=== PATIENT | male | born 1955 ===

== ENCOUNTER 2025-01-01 11:20 | Outpatient (AMB) | payer MEDICARE, MEDICAID, SELFPAY ==
--- NOTE | 2025-01-01 11:21 | MHC.OFFVIS ---
Intake Visit Reasons: 6m Accompanied by: staff member Allergies No Known Allergies Allergy (Verified 01/01/25 11:23) Medication List - Last Reconciled 01/01/25 by Hermelinda James CNP albuterol sulfate 90 mcg/actuation inhalation amantadine HCl 100 mg PO BID apixaban (Eliquis) 5 mg PO BID bisacodyl 10 mg [place] DAILY cholecalciferol (vitamin D3) 50 mcg PO DAILY divalproex 500 mg PO TID docusate sodium 100 mg PO DAILY ferrous sulfate (FeroSul) mg PO fluoxetine 20 mg PO DAILY fluticasone furoate-vilanterol 100-25 mcg/dose inhalation folic acid 1 mg PO DAILY levothyroxine 50 mcg PO DAILY loratadine 10 mg PO DAILY metoprolol tartrate 50 mg PO DAILY omeprazole 20 mg PO BID quetiapine mg PO simvastatin 40 mg PO BEDTIME tamsulosin mg PO HPI Comments Details: 69-year-old man with 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 He was doing okay. Amantadine was helping with tremor. No functional impairment. No difficulty eating, drinking, or swallowing. Tremor could be worse with caffiene or sugar.?Balance was okay and he was going for some walks. No falls. Sleep was okay. [facility] Medical History (Updated 01/01/25 @ 11:29 by Hermelinda James CNP) URBANO (obstructive sleep apnea) Depression BPH (benign prostatic hyperplasia) Hypothyroidism GERD (gastroesophageal reflux disease) Schizophrenia Intellectual disability Seizure disorder Review of Systems Const Denies chills, Denies daytime sleepiness, Denies difficulty sleeping, Denies fatigue, Denies fever(s), Denies frequent falls, Denies headache(s), Denies increased appetite, Denies poor appetite, Denies snoring, Denies weakness, Denies weight gain and Denies weight loss Eyes Denies loss of vision ENT Denies vertigo, Denies dizziness and Denies headache(s) Card Denies chest pain at rest, Denies chest pain with activity, Denies syncope, Denies leg edema and Denies palpitations Resp Denies snoring GI Denies constipation, Denies heartburn, Denies diarrhea and Denies nausea Denies urinary frequency, Denies urinary incontinence and Denies urinary urgency Musc Denies abnormal gait, Denies numbness and Denies tingling Skin/Breast Denies dry skin and Denies rash Neuro Denies abnormal gait, Denies vertigo, Denies dizziness, Denies syncope, Denies frequent falls, Denies headache(s), Denies lack of coordination, Denies loss of vision, Denies memory loss, Denies numbness, Denies restless legs, Denies seizure-like activity, Denies tingling, Denies paresthesias, Reports tremor(s) and Denies weakness Psych Denies anxiety, Denies depression, Denies auditory hallucinations, Denies memory loss, Denies visual hallucinations and Denies suicidal ideation Endo Denies fatigue and Denies palpitations Physical Exam Const Other: General Appearance:? normal, in no acute distress. Skin:? no rashes, no significant birthmarks. Heart:? S1, S2 normal, no murmurs. Lungs:? clear anteriorly and posteriorly. Extremities:? no edema. Psych:? alert, cooperative with exam. Neuro Other: Mental Status:?Normal attention, orientation, and flat affect.? Cranial Nerves:?Pupils are equal, round and reactive to light. External occular muscles are intact. Visual banegas are full. Face is symmetrical. Facial sensations are normal. Tongue is midline. Palate elevates symmetrically. Shoulder shrugging is normal. Hearing to bedside conversation is normal. Sensory Exam:?....? Coordination:?No ataxia,?no titubation.? Gait Exam: Within normal limits. Cerebellar Signs:?[id number] with tremor. Extrapyramidal System:?Bilateral hand cogwheeling. Pronator Drift:?Not present.? Involuntary Movements:?Bilateral hand mixed tremor. Speech:?Normal.? Results Reviewed Results Reviewed: NICS at [facility] in Apr 2022: OK TTE at [facility] in Apr 2022: OK. Assessment & Plan Assessment & Plan (1) Tremor: Code(s): R25.1 - Tremor, unspecified Category: Medical Plan: Continue amantadine 100mg 1 capsule twice a day. (2) Chronic static encephalopathy: Code(s): G93.49 - Other encephalopathy Category: Medical Plan Meds tried: benztropine (worked but not covered by insurance), amantadine Coding Level of Care Code Est Pt Level 4 (62858) Diagnoses Tremor R25.1 Chronic static encephalopathy G93.49
--- OUTSIDE RECORDS SUMMARY | 2025-01-01 14:24 | XMS_ITS | Encounter Summary ---
Author Organization [facility] [address] Address [address] [place] [address] Care Team Providers Care Insurance Advisor Name Role Phone Diann Redmond MD Primary Care Provider [phone] Encounter Details Date Type Department Care Team (Late st Contact Info) Description 12/11/2024 Results Follow-Up Internal Medicine - [place] [address] [facility] [address] [place] [phone] Diann Redmond MD [address] [place] [phone] Social History Tobacco Use Types Packs/Day Years Used Date Smoking Tobacco: Former Cigarettes Q uit: 03/01/2016 Smokeless Tobacco: Never Alcohol Use Standard Drinks/Week Comments Not Currently 0 (1 standard drink = 0.6 oz pur e alcohol) Sex and Gender Information Value Date Recorded Sex Assigned at Male 06/21/2024 9:25 AM EDT Legal Sex Male 6:18 PM EST Gender Identity Male 06/21/2024 9:25 AM EDT Sexual Orientation Straight 06/21/2024 9: 25 AM EDT documented as of this encounter Plan of Treatment Upcoming Encounters Date Type Department Care Team (Late st Contact Info) Description 05/14/2025 11:30 AM EDT Office Visit Internal Medicine - [place] [address] [facility] [address] [place] [phone] Diann Redmond MD [address] [place] [phone] 05/30/2025 9:30 AM EDT Office Visit Pulmonology - [place] [address] [phone] Sabina Cazares MD [address] [place] [phone] 05/31/2025 10:15 AM EDT Appointment Ultrasound [address] [place] [phone] 06/06/2025 11:30 AM EDT Office Visit Vascular Surgery - [place] [address] [place] [phone] Asha Suarez MD [address] [place] [phone] documented as of this encounter Visit Diagnoses Not on filedocumented in this encounter Care Teams Insurance Advisor Relationship Specialty Start Date End Date Diann Redmond MD [address] [phone] PCP - General 01/08/23 documented as of this encounter
--- OUTSIDE RECORDS SUMMARY | 2025-01-01 14:24 | XMS_ITS | Clinical Summary ---
Author Organization [address] [place] [address] [place] [phone] Phone Care Team Providers Care Research Coordinator Name Role Phone Diann Redmond MD Primary Care Provider [phone] Allergies Active Allergy Reactions Criticality Noted Date Comments Fluphenazine Hcl 01/02/2020 Medications loratadine 10 mg capsule Take by mouth. Acti ve benztropine (COGENTIN) 0.5 mg tablet Take 1 tablet (0.5 mg total) by mouth 1 (one) time each day. Active sennosides 8.6 mg capsule Take 8.6 mg by mouth as needed (constipation) . 024 Active psyllium (METAMUCIL) 0.52 gram capsule Take 1 capsule (0.52 g total) by mouth 1 (one) time each day. 022 Active calcium carbonate 1,500 mg (600 mg elemental calcium) tablet Take 2 tablets (3,000 mg total) by mouth 1 (one) time each day. 023 Active divalproex (DEPAKOTE) [address] tablet 023 Active multivitamin tablet Take 1 tablet by mouth 1 (one) time each day with breakfast. 023 Active simethicone (MYLICON,GAS-X ) 180 mg capsule Take 1 capsule (180 mg total) by mouth 1 (one) time each day. Active folic acid (FOLVITE) 1 mg tablet 1 (one) time each day. 021 Active metoprolol tartrate (LOPRESSOR) 50 mg tablet at bedtime. 020 Active FLUoxetine (PROzac) 20 mg capsule Take 1 capsule (20 mg total) by mouth 1 (one) time each day. 019 Active divalproex (DEPAKOTE ER) 500 mg 24 hr tablet 1 tablet (500 mg total). 013 Active albuterol HFA (PROAIR HFA ; PROVENTIL HFA ; VENTOLIN HFA) 90 mcg/actuation inhaler INHALE 2 PUFFS EVERY 6 HOURS PRN 016 Active amantadine (SYMMETREL) 100 mg capsule Take 1 capsule (100 mg total) by mouth 2 (two) times a day. Active QUEtiapine (SEROquel) 50 mg tablet Take 1 tablet (50 mg total) by mouth. Active acetaminophen (TYLENOL) 325 mg tabletIndicati ons:Intractabl e headache, unspecified chronicity pattern, unspecified headache type Take 2 tablets (650 mg total) by mouth every 4 (four) hours if needed for moderate pain, fever - temperature GREATER than 38 C (100.4 F) or headaches. 180 tablet 3 025 Active bisacodyL (DULCOLAX) 10 mg suppository Insert 1 suppository (10 mg total) into the rectum 1 (one) time each day if needed for constipation. 30 suppository 025 Active omeprazole (PriLOSEC) [address] capsule Take 1 capsule (20 mg total) by mouth 1 (one) time each day. Do not crush or chew. 30 each 025 2025 Active fluticasone furoate-vilant Daniella (BREO ELLIPTA) 100-25 mcg/dose inhaler Inhale 1 puff by mouth 1 (one) time each day. 1 each 11 Active albuterol HFA (Ventolin HFA) 90 mcg/actuation inhaler Inhale 2 puffs by mouth every 6 (six) hours if needed for wheezing. 18 g 11 2025 Active Eliquis 5 mg tablet TAKE 1 TABLET BY MOUTH TWICE DAILY 60 tablet 1 Active FeroSuL 325 mg (65 mg iron) tablet TAKE 1 TABLET BY MOUTH ONCE DAILY 30 tablet 1 Active loratadine (CLARITIN) 10 mg tablet Take 1 tablet (10 mg total) by mouth 1 (one) time each day. 30 tablet 1 Active cholecalcifero l (VITAMIN D-3) 50 mcg (2,000 unit) capsule TAKE 1 CAPSULE BY MOUTH DAILY. 30 capsule 1 Active levothyroxine (SYNTHROID, LEVOTHROID) 50 mcg tablet TAKE 1 TABLET BY MOUTH ONCE DAILY 30 tablet 1 Active tamsulosin (FLOMAX) 0.4 mg 24 hr capsule TAKE 1 CAPSULE BY MOUTH AT BEDTIME. 30 capsule 1 Active docusate sodium (COLACE) 100 mg capsule TAKE (1) CAPSULE BY MOUTH DAILY 30 capsule 1 Active simvastatin (ZOCOR) 40 mg tablet Take 1 tablet (40 mg total) by mouth at bedtime. at bedtime 90 tablet 3 Active omeprazole-sod ium bicarbonate (Zegerid) 40-1.1 mg-gram per capsule Take 1 capsule by mouth 1 (one) time each day before breakfast. Do not crush, chew, or split. 90 capsule 025 2025 Active omeprazole (PriLOSEC) [address] capsule Take 1 capsule (20 mg total) by mouth 2 (two) times a day. Do not crush or chew. 60 capsule 3 025 2024 Discontinued Eliquis 5 mg tablet TAKE 1 TABLET BY MOUTH TWICE DAILY 60 tablet 025 2024 Discontinued simvastatin (ZOCOR) 40 mg tablet TAKE 1 TABLET BY MOUTH DAILY AT BEDTIME 30 tablet 025 2024 Discontinued FeroSuL 325 mg (65 mg iron) tablet TAKE 1 TABLET BY MOUTH ONCE DAILY 30 tablet 025 2024 Discontinued loratadine (CLARITIN) 10 mg tablet TAKE (1) TABLET BY MOUTH DAILY. 30 tablet 2024 Discontinued cholecalcifero l (VITAMIN D-3) 50 mcg (2,000 unit) capsule TAKE 1 CAPSULE BY MOUTH DAILY. 30 capsule 025 2024 Discontinued levothyroxine (SYNTHROID, LEVOTHROID) 50 mcg tablet TAKE 1 TABLET BY MOUTH ONCE DAILY 30 tablet 2024 Discontinued tamsulosin (FLOMAX) 0.4 mg 24 hr capsule TAKE 1 CAPSULE BY MOUTH AT BEDTIME. 30 capsule 2024 Discontinued docusate sodium (COLACE) 100 mg capsule TAKE (1) CAPSULE BY MOUTH DAILY 30 capsule 2024 Discontinued guaiFENesin (ROBITUSSIN) 100 mg/5 mL liquid Take 10 mL (200 mg total) by mouth 3 (three) times a day if needed for cough for up to 10 days. 120 mL 2024 simvastatin (ZOCOR) 40 mg tablet TAKE 1 TABLET BY MOUTH DAILY AT BEDTIME 30 tablet 1 2024 Discontinued(R eorder) omeprazole (PriLOSEC) [address] capsule Take 1 capsule (20 mg total) by mouth 1 (one) time each day. 60 capsule 2024 Discontinued(I neffective) Active Problems Problem Noted Date Diagnosed Date Osteoarthritis 06/28/2024 Epilepsy ([facility] V24, [facility] V28) 06/28/2024 Bipolar disorder ([facility] V24[facility] V28) 06/01 Asthma 06/28/2024 URBANO (obstructive sleep apnea) 01/27/2021 Overview (01/19/2024): [facility] diagnostic polysomnogram; 01/11/2021; weight 270 pounds; BMI 32; AHI 110; no REM sleep; 88 central apneas; 93 obstructive apneas; 79 mixed apneas; 88 hypopneas; average oxygen saturation 93% with 87% oxygen torsten. Study does not reflect nocturnal hypoxemia. Sees Dr Cazares. Memory change 01/27/2021 Esophageal reflux 07/12/2017 Hyperlipidemia 07/12/2017 Vitamin D deficiency 07/12/2017 Benign essential tremor 08/15/2016 Pulmonary nodule 07/13/2016 COPD (chronic obstructive pu lmonary disease) ([facility] V24, [facility] V28) 07/06/2016 Hypocalcemia 04/13/2016 Hypothyroidism 04/13/2016 Internal hemorrhoids 04/13/2016 Binge eating 02/17/2016 Prostatic hyperplasia 2016 Depression 01/08/2016 Chronic cholecystitis 10/16/2015 Anxiety 03/14/2015 Carpal tunnel syndrome 10/04/2013 Allergic rhinitis 08/19/2012 Eczema 05/10/2012 Encounters Date Type Department Care Team Description 12/13/20[address] [phone] Sabina Cazares MD 12/11/2024 3:00 PM EDT Office Visit Internal Medicine [address] [phone] Diann Redmond MD Numbness in feet (Primary Dx); Screening for malignant neoplasm of prostate; Hypothyroidism due to acquired atrophy of thyroid; Elevated PSA 12/11/2024 Results Follow-Up Internal Medicine [address] [phone] Diann Redmond MD 12/11/2024 Telephone Internal Medicine [address] [phone] Diann Redmond MD 11/29/2024 10:15 AM EDT Office Visit Pulmonology [address] [phone] Sabina Cazares MD Emphysema of lung ([facility] V24, [facility] V28) (Primary Dx); URBANO (obstructive sleep apnea); Gastroesophageal reflux disease without esophagitis; Obesity (BMI 30-39.9) 11/02/2024 Telephone Internal Medicine - [place] [address] [facility] [address] [place] [address] Diann Redmond MD 10/25/2024 Telephone Pulmonology - [place] [facility] [address] [place] [address] Sabina Cazares MD 10/17/2024 Telephone Pulmonology - [place] [address] [facility] [address] [place] [address] Sabina Cazares MD from Last 3 Months Immunizations Immunization Administration Dates Next Due Influenza trivalent, 0.5mL, preservative free (Fluarix; FluLaval; Fluzone) ages 6mo and older (Afluria) 3 years and older 2016 Moderna SARS-CoV-2 COVID-19, mRNA, LNP-S, preservative free 08/04/2021,02/19/2021,04/19/2020,2020 Pneumococcal conjugate 13 va lent (Prevnar 13, PCV13) 2mo and older 08/22/2021 Zoster recombinant (Shingrix ) 19yo and older 07/30/2021 Surgical History Surgery Date Site/Laterality Comments CATARACT EXTRACTION PROCEDURE: HISTORICAL CATARACT REMOVAL Medical History Medical History Date Comments Allergic rhinitis 08/19/2012 DX:Allergic rh initis Anxiety 03/14/2015 DX:Anxiety Benign essential tremor 08/15/2016 DX:Benig n essential tremor Binge eating 02/17/2016 DX:Binge eating Carpal tunnel syndrome 10/04/2013 DX:Carpal tunnel syndrome Chronic cholecystitis 10/16/2015 DX:Chronic cholecystitis COPD (chronic obstructive pu lmonary disease) ([facility] V24, [facility] V28) 07/06/2016 DX:COPD (chronic o bstructive pulmonary disease) ([facility]) Depression 01/08/2016 DX:Depression Eczema 05/10/2012 DX:Eczema Esophageal reflux 07/12/2017 DX:Esophageal reflux History of duodenal ulcer 03/14/2015 DX:His tory of duodenal ulcer Hyperlipidemia 07/12/2017 DX:Hyperlipidemi a Hypocalcemia 04/13/2016 DX:Hypocalcemia Internal hemorrhoids 04/13/2016 DX:Internal hemorrhoids Prostatic hyperplasia 2016 DX:Prostat ic hyperplasia Pulmonary nodule 07/13/2016 DX:Pulmonary no dule Vitamin D deficiency 07/12/2017 DX:Vitamin D deficiency Family History Relation Name Status Comments Father Mother Social History Tobacco Use Types Packs/Day Years Used Date Smoking Tobacco: Former Cigarettes Q uit: 03/01/2016 Smokeless Tobacco: Never Tobacco Cessation:Counseling Given: Not Answered Alcohol Use Standard Drinks/Week Comments Not Currently 0 (1 standard drink = 0.6 oz pur e alcohol) Sex and Gender Information Value Date Recorded Sex Assigned at Male 06/21/2024 9:25 AM EDT Legal Sex Male 6:18 PM EST Gender Identity Male 06/21/2024 9:25 AM EDT Sexual Orientation Straight 06/21/2024 9: 25 AM EDT Obstetrics History Last Filed Vital Signs Vital Sign Reading Time Taken Comments Blood Pressure 134/82 12/11/2024 3:00 PM EDT Pulse 91 12/11/2024 3:00 PM EDT Temperature 36.7 C (98.1 F) 12/11/2024 3:00 PM EDT Respiratory Rate 20 12/11/2024 3:00 PM EDT Oxygen Saturation 97% 12/11/2024 3:00 PM EDT Inhaled Oxygen Concentration - - Weight 126 kg (278 lb) 12/11/2024 3:00 PM EDT Height 194.3 cm (6' 4.5 ) 12/11/2024 3:00 PM EDT Body Mass Index 33.4 12/11/2024 3:00 PM EDT Plan of Treatment Upcoming Encounters Date Type Department Care Team (Late st Contact Info) Description 05/14/2025 11:30 AM EDT Office Visit Internal Medicine - [address] [phone] Diann Redmond MD [address] [place] [phone] 05/30/2025 9:30 AM EDT Office Visit Pulmonology - [address] [phone] Sabina Cazares MD [address] [place] [phone] 05/31/2025 10:15 AM EDT Appointment [facility] Ultrasound [address] [place] [address] 06/06/2025 11:30 AM EDT Office Visit Vascular Surgery - [place] [address] [place] [phone] Asha Suarez MD [address] [place] [phone] Health Maintenance Due Date Last Done Comments DTaP,Tdap,and Td Vaccines (1 - Tdap) 1973 RSV Immunization Adult Patients (1 - Risk 50-74 years 1-dose series) 01/16/2004 Zoster Vaccines (2 of 2) 09/24/2021 07/30/2021 Pneumococcal Vaccine: 50+ Years (2 of 2 - PPSV23, PCV20, or PCV21) 10/17/2021 08/22/2021 Abdominal Aortic Aneurysm (AAA) Screen 02/07/2022 Hepatitis C Screening 02/07/2022 Social Influencers of Health Screening 02/07/2022 Depression Screening 03/01/2024 08/25/2023 Falls Risk Assessment 08/24/2024 08/25/2023 Medicare Annual Wellness Visit 08/24/2024 08/25/2023 COVID-19 Vaccine ( season) 2024 08/04/2021, 02/19/2021, 04/19/2020, Additional history exists Influenza Vaccine (#1) 2024 , 2016, 12/22/2014 Colorectal Cancer Screening: Colonoscopy 02/10/2026 02/11/2016 Cholesterol Screening (Lipid Panel) 04/04/2029 04/04/2024, 04/08/2023 HIB Vaccines Aged Out No longer eligi ble based on patient's age to complete this topic HPV Vaccines Aged Out No longer eligi ble based on patient's age to complete this topic Hepatitis A Vaccines Aged Out No long er eligible based on patient's age to complete this topic Hepatitis B Vaccines Aged Out No long er eligible based on patient's age to complete this topic IPV Vaccines Aged Out No longer eligi ble based on patient's age to complete this topic MMR Vaccines Aged Out No longer eligi ble based on patient's age to complete this topic Meningococcal ACWY Vaccine Aged Out N o longer eligible based on patient's age to complete this topic Meningococcal B Vaccine Aged Out No l onger eligible based on patient's age to complete this topic RSV Immunization Patients Under 20 months Aged Out No longer eligible based on patient's age to complete this topic Varicella Vaccines Aged Out No longer eligible based on patient's age to complete this topic Procedures Procedure Name Priority Date/Time Associated Diagnosis Comments TRIIODOTHYRONINE FREE Routine 12/11/2024 3:30 PM EDT Numbness in feet Screening for malignant neoplasm of prostate Hypothyroidism due to acquired atrophy of thyroid Elevated PSA FREE THYROXINE WITH REFLEX TO FREE TRIIODOTHYRONINE Routine 12/11/2024 3:30 PM EDT Numbness in feet Screening for malignant neoplasm of prostate Hypothyroidism due to acquired atrophy of thyroid Elevated PSA THYROID STIMULATING HORMONE WITH REFLEX TO FREE T4 AND FREE T3 Routine 12/11/2024 3:30 PM EDT Numbness in feet Screening for malignant neoplasm of prostate Hypothyroidism due to acquired atrophy of thyroid Elevated PSA COMPREHENSIVE METABOLIC PANEL Routine 12/11/2024 3:30 PM EDT Numbness in feet Screening for malignant neoplasm of prostate Hypothyroidism due to acquired atrophy of thyroid Elevated PSA LIPID PANEL WITH REFLEX TO DIRECT LDL Routine 04/04/2024 9:56 AM EST Hypothyroidism due to acquired atrophy of thyroid Mixed hyperlipidemia Chronic obstructive pulmonary disease, unspecified COPD type (CMS/HCC V24, CMS/HCC V28) DEPRESSION SCREENING Routine 08/25/2023 FALLS RISK ASSESSMENT Routine 08/25/2023 COLONOSCOPY Routine 02/11/2016 from Last 3 Months or Most Recently Relevant to Health Maintenance Results * (ABNORMAL) Thyroid stimulating hormone with reflex to free t4 and free t3 (12/11/2024 3:30 PM EDT) TSH 6.31(H) 0.40 - 4.00 mcIU/mL LAB CHEMISTRY METHOD 12/11/2024 7:13 PM EDT [facility] Blood Venous blood specimen / Unknown Venipuncture / Unknown 12/11/2024 3:30 PM EDT 12/11/2024 3:31 PM EDT Diann Redmond MD LAB BLOOD ORDERABLES Final Res ult Performing Organization Address City/[facility]/ZIP Co de Phone Number [facility] [address] [place] [address], [place] [phone] * Free thyroxine with reflex to free triiodothyronine (12/11/2024 3:30 PM EDT) Free T4 1.13 0.70 - 1.80 ng/dL LAB CHEMISTRY METHOD 12/11/2024 7:49 PM EDT [facility] Blood Venous blood specimen / Unknown Venipuncture / Unknown 12/11/2024 3:30 PM EDT 12/11/2024 3:31 PM EDT us Diann Redmond MD LAB BLOOD ORDERABLES Final Res ult Performing Organization Address City/[facility]/ZIP Co de Phone Number [facility] [address] [place] [address], [place] [phone] * Triiodothyronine free (12/11/2024 3:30 PM EDT) T3, Free 316 230 - 420 pcg/dL LAB CHEMISTRY METHOD 12/11/2024 8:21 PM EDT [facility] Blood Venous blood specimen / Unknown Venipuncture / Unknown 12/11/2024 3:30 PM EDT 12/11/2024 3:31 PM EDT us Diann Redmond MD LAB BLOOD ORDERABLES Final Res ult [facility] [address] [place] [address], [place] [phone] * (ABNORMAL) Comprehensive metabolic panel (12/11/2024 3:30 PM EDT) Sodium 138 133 - 145 mmol/L LAB CHEMISTRY METHOD 12/11/2024 6:52 PM EDT [facility] Potassium 4.4 3.5 - 5.5 mmol/L LAB CHEMISTRY METHOD 12/11/2024 6:52 PM [facility] Chloride 104 96 - 110 mmol/L LAB CHEMISTRY METHOD 12/11/2024 6:52 PM [facility] CO2 28 21 - 32 mmol/L LAB CHEMISTRY METHOD 12/11/2024 6:52 PM [facility] Anion Gap 6 3 - 11 LAB CHEMISTRY METHOD 12/11/2024 6:52 PM [facility] Glucose 135(H) 70 - 100 mg/dL LAB CHEMISTRY METHOD 12/11/2024 6:52 PM [facility] BUN 23 5 - 25 mg/dL LAB CHEMISTRY METHOD 12/11/2024 6:52 PM [facility] Creatinine 1.10 0.70 - 1.30 mg/dL LAB CHEMISTRY METHOD 12/11/2024 6:52 PM [facility] eGFR 72 >=60 mL/min/1. 73m2 LAB CHEMISTRY METHOD 12/11/2024 6:52 PM [facility] Comment:Calculation based on the Chronic Kidney Disease Epidemiology Collaboration (CKD-EPI) equation refit without adjustment for race. BUN/Creatinine Ratio 20.9 LAB CHEMISTRY METHOD 12/11/2024 6:52 PM [facility] Calcium 9.1 8.5 - 10.5 mg/dL LAB CHEMISTRY METHOD 12/11/2024 6:52 PM EDT [facility] AST (SGOT) 30 10 - 42 unit/L LAB CHEMISTRY METHOD 12/11/2024 6:52 PM EDT [facility] ALT (SGPT) 42 10 - 60 unit/L LAB CHEMISTRY METHOD 12/11/2024 6:52 PM EDT [facility] Alkaline Phosphatase 96 42 - 121 unit/L LAB CHEMISTRY METHOD 12/11/2024 6:52 PM EDT [facility] Total Protein 7.2 6.0 - 8.0 g/dL LAB CHEMISTRY METHOD 12/11/2024 6:52 PM EDT [facility] Albumin 3.4 3.2 - 5.0 g/dL LAB CHEMISTRY METHOD 12/11/2024 6:52 PM [facility] Total Bilirubin 0.3 0.0 - 1.4 mg/dL LAB CHEMISTRY METHOD 12/11/2024 6:52 PM EDT [facility] Blood Venous blood specimen / Unknown Venipuncture / Unknown 12/11/2024 3:30 PM EDT 12/11/2024 3:31 PM EDT us Diann Redmond MD LAB BLOOD ORDERABLES Final Res ult [facility] [address] [place] [address], * (ABNORMAL) Lipid panel with reflex to direct LDL (04/04/2024 9:56 AM EST) Cholesterol 175 0 - 200 mg/dL LAB CHEMISTRY METHOD 04/04/2024 3:21 PM EST [facility] Triglycerides 246(H) 0 - 150 mg/dL LAB CHEMISTRY METHOD 04/04/2024 3:21 PM [facility] HDL 44 >=40 mg/dL LAB CHEMISTRY METHOD 04/04/2024 3:21 PM EST [facility] LDL Calculated 82 0 - 100 mg/dL LAB CHEMISTRY METHOD 04/04/2024 3:21 PM EST [facility] VLDL Cholesterol Rasheed 49.2 mg/dL LAB CHEMISTRY METHOD 04/04/2024 3:21 PM EST [facility] Non HDL Chol. (LDL+VLDL) 131 <145 mg/dL LAB CHEMISTRY METHOD 04/04/2024 3:21 PM [facility] Chol/HDL Ratio 4.0 0.0 - 4.4 LAB CHEMISTRY METHOD 04/04/2024 3:21 PM [facility] Blood Venous blood specimen / Unknown Venipuncture / Unknown 04/04/2024 9:56 AM EST 04/04/2024 9:56 AM EST Diann Redmond MD LAB BLOOD ORDERABLES Final Res ult [facility] [address] [place] [address], * Falls Risk Assessment (08/25/2023) Pathologist [facility] Falls Risk Assessment Abstracted Historical Provider HEALTH MAINTENANCE Final Result * Depression Screening (08/25/2023) Pathologist [facility] Depression Screening Abstracted Historical Provider HEALTH MAINTENANCE Final Result * Colonoscopy (02/11/2016) Pathologist [facility] Colonoscopy No Interpretation , Abstracted Anatomical Region Laterality Modality Other Historical Provider HEALTH MAINTENANCE Final Result from Last 3 Months or Most Recently Relevant to Health Maintenance Insurance MEDICARE [place]ICA[place] - [place] Advance Directives Documents on File Type Date Recorded Patient Auditor In Charge Expl anation Health Care Decision (hx) 09/22/2022 AD PABON DIRECTIVE Health Care Decision (hx) 09/22/2022 AD PABON DIRECTIVE Health Care Decision (hx) 09/22/2022 AD PABON DIRECTIVE Care Teams Research Coordinator Relationship Specialty Start Date End Date Diann Redmond MD [address] [place] [phone] PCP - General 01/08/23
--- OUTSIDE RECORDS SUMMARY | 2025-01-01 14:24 | XMS_ITS | Clinical Summary ---
Author Organization [facility] Address [address] [place] [address] Care Team Providers Care Process Architect Name Role Phone Diann Redmond MD Primary Care Provider [phone] Allergies Active Allergy Reactions Criticality Noted Date Comments Fluphenazine 03/04/2023 Seasonal 03/04/2023 Medications Medication Sig Dispensed Refills Start Date End Date Status Loratadine 10 MG CAPS Take by mouth. 0 Active Cholecalciferol (D3 1999) 50 MCG (1999 UT) CAPS Take by mouth. 0 Active METOPROLOL SUCCINATE PO Take by mouth. 0 Active omeprazole (PriLOSEC) 20 MG capsule Take 1 capsule (20 mg total) by mouth daily. 0 Active Fluticasone Furoate-Vilanterol (BREO ELLIPTA IN) Inhale into the lungs. 0 Active divalproex (DEPAKOTE) [address] tablet Take 1 tablet (500 mg total) by mouth 3 (three) times a day. 0 Active levothyroxine (SYNTHROID) tablet 50 mcg Take 1 tablet (50 mcg total) by mouth every morning on an empty stomach. 0 Active tamsulosin (FLOMAX) 0.4 MG CAPS Take 1 capsule (0.4 mg total) by mouth daily. 0 Active ferrous sulfate 325 (65 FE) MG tablet Take 1 tablet (325 mg total) by mouth every morning with breakfast. 0 Active apixaban (ELIQUIS) 5 MG TABS tablet Take by mouth every 12 (twelve) hours. 0 Active QUEtiapine (SEROquel) 50 MG tablet Take 1 tablet (50 mg total) by mouth every night at bedtime. 0 Active FLUoxetine (PROzac) 20 MG capsule Take 1 capsule (20 mg total) by mouth daily. 0 Active simvastatin (ZOCOR) tablet 40 mg Take 1 tablet (40 mg total) by mouth every night at bedtime. 0 Active Active Problems Problem Noted Date Diagnosed Date URBANO (obstructive sleep apnea) 01/27/2021 Overview: [facility] diagnostic polysomnogram; 01/11/2021; weight 270 pounds; BMI 32; AHI 110; no REM sleep; 88 central apneas; 93 obstructive apneas; 79 mixed apneas; 88 hypopneas; average oxygen saturation 93% with 87% oxygen torsten. Study does not reflect nocturnal hypoxemia. Sees Dr Cazares. Vitamin D deficiency 07/12/2017 03/07/2023 Pulmonary nodule 07/13/2016 03/07/2023 COPD (chronic obstructive pulmonary disease) 09/201603/07/2023 Hypothyroidism 04/13/2016 03/07/2023 Prostatic hyperplasia 2016 03/07/2023 Depression 01/08/2016 03/07/2023 Anxiety 03/14/2015 03/07/2023 History of Helicobacter pylori infection 016 03/07/2023 Allergic rhinitis 08/19/2012 03/07/2023 Family History Relation Name Status Comments Father Mother Social History Tobacco Use Types Packs/Day Years Used Date Smoking Tobacco: Former Cigarettes Q uit: 2017 Smokeless Tobacco: Never Tobacco Cessation:Counseling Given: Not Answered Alcohol Use Standard Drinks/Week Comments Not Currently 0 (1 standard drink = 0.6 oz pur e alcohol) Sex and Gender Information Value Date Recorded Sex Assigned at Not on file Gender Identity Not on file Sexual Orientation Not on file Job Start Date Occupation Industry Not on file Not on file Not on file Last Filed Vital Signs Vital Sign Reading Time Taken Comments Blood Pressure 109/81 03/04/2023 11:14 AM EST Pulse 75 03/04/2023 11:14 AM EST Temperature 36.7 C (98 F) 03/04/2023 11:14 AM EST Respiratory Rate - - Oxygen Saturation 100% 03/04/2023 11: 14 AM EST Inhaled Oxygen Concentration - - Weight 113.3 kg (249 lb 12.8 oz) 2023 11:14 AM EST Height 194.3 cm (6' 4.5 ) 03/04/2023 11 :14 AM EST Body Mass Index 30.01 03/04/2023 11:14 AM EST Plan of Treatment Health Maintenance Due Date Last Done Comments Hepatitis C Screening 1955 COVID-19 Vaccine (#1) 1955 Depression Screening 1966 BMI Counseling 01/16/1972 Preventative Health Evaluation 01/16/1972 DTap / Tdap / Td (1 - Tdap) 1973 Colon Cancer Screening (Colonoscopy) 1999 RSV Adult > 60+ Yrs or Pregn ant (1 - Risk 60-74 years 1-dose series) 2014 Fall Risk Assessment 2019 Shingrix-Zoster Vaccine (2 of 2) 09/24/2021 07/31/19 Pneumococcal Vaccine (2 of 2 - PPSV23 or PCV20) 10/17/2021 08/22/2021 Influenza Vaccine (#1) 2024 Hepatitis B Vaccines Aged Out No long er eligible based on patient's age to complete this topic RSV Ped < 20 months Aged Out No longe r eligible based on patient's age to complete this topic Care Teams Process Architect Relationship Specialty Start Date End Date Diann Redmond MD [address] [facility] [address] [place] [id number] PCP - General Internal Medicine 01/08/23
--- OUTSIDE RECORDS SUMMARY | 2025-01-01 14:24 | XMS_ITS ---
Author Organization [facility] Care Team Providers Care Sample Dye Mixer Name Role Phone Sarika Larios Unavailable Unavailable Carline Davison Unavailable Unavailable Yael Sellers Unavailable Unavailable Faith Cagle Unavailable Unavailable Allergies and adverse reactions No Known Allergies Care Team Name Role Address Phone Organization Dates Carline Davison PCP [address], [place], [address], [place] (Office): [facility] 09/21/2022 - 03/19/2023 Sarika Larios [address] [facility] [address], [place], [address], [place] (Office): [facility] 09/21/2022 - 03/19/2023 Yael Sellers [address] [facility] [address], [place], [address], [place] (Office): [facility] 09/21/2022 - 03/19/2023 Faith Cagle [address] [place] [address], [id number], [place] (Office): [facility] 09/21/2022 - 03/19/2023 Goals Section Goals Description Status Target Date Advanced Directives will be honored and reevalua jaswinder as needed Active 03/27/2023 Intake of meals 100% or as tolerated. Active 03/27/2023 Maintain weight 256lbs +/- < 5%, gradual weight loss is acceptable/beneficial. Active 03/27/2023 Minimize risk for falls Active 03/27/19 Minimize risk for injury related to falls Active 03/27/2023 No s/s aspiration or dehydration. Active 03/27/2023 Nutrition related labs at baseline for medical c onditions. Active 03/27/2023 Lalit will participate in independent activity of choice through [facility]. Active 04/03/2023 Skin to remain intact. Active Skin will remain in tact, fr ee from erythema, breakdown, excoriation or bruising until next review Active 03/27/2023 Will accept care and medication as prescribed Ac tive 03/27/2023 Will be able to make needs known to staff Active 03/27/2023 Will be clean, dressed and w ell groomed daily to promote dignity and psychosocial well-being Active 03/27/2023 Will be discharged to home w hen clinical and rehabilitation goals are met Active 03/27/2023 Will be free from skin breakdown Active 03/27/2023 Will be free of complications related to disease process Active 03/27/2023 Will decrease/minimize skin breakdown risks Acti ve 03/27/2023 Will display appropriate response to situation A ctive 03/27/2023 Will exhibit no acute cardia c distress such as complaints of chest pain, cyanosis, SOB, etc. Active 03/27/2023 Will express feelings of adj ustment to new surroundings by next review Active 03/27/2023 Will express that pain management is within acce ptable limits Active 03/27/2023 Will have ADL needs met with staff assistance Ac tive 03/27/2023 Will have all ADL needs met with staff assistanc e as needed Active 03/27/2023 Will have no adverse effects related to thyroid therapy Active 03/27/2023 Will have no complications due to incontinence A ctive 03/27/2023 Will have no injuries as the result of impaired vision Active 03/27/2023 Will improve existing ADL se lf performance gg goal-will ambulate 10feet independently 09/21 admission gg goal-10/01 admission -transfer from chair/bed to chair transfer will be independent Active 03/27/2023 Will initiate social interaction with peers Acti ve 03/27/2023 Will maintain good oral hygiene Active 03/27/2023 Will maintain involvement wi th ADL performance and social activities Active 03/27/2023 Will not develop complications related to decrea sed mobility Active 03/27/2023 Will receive assistance necessary to meet ADL ne eds Active 03/27/2023 Will reduce risk of seizure activity or injury associated from seizures Active 03/27/2023 Will show no side effects of medication use Acti ve 03/27/2023 Will tolerate diet, texture and fluid consistency without signs and symptoms of aspiration Active 03/27/2023 Immunizations Immunization Status Vaccine Details Vaccine Code CodeSystem Date Notes Influenza completed Influenza, split virus, trivalent, injectable, contains preservative lotNumber: [id number] expiry: 07/30/2023 Mfg: [employer] Given 0.5 ml Left Deltoid intramuscularly 141 CVX created date: 12/23/2022 administere d date: 12/22/2022 Influenza completed Influenza, split virus, trivalent, injectable, contains preservative 141 CVX created date: 09/21/2022 administere d date: 04/28/2021 TB 2 Step Mantoux Skin Test completed tuberculin skin test; unspecified formulation Step 2 of Multi-step with next step required 98 CVX created date: 12/09/2022 consent date: 12/09/2022 administere d date: 10/04/2022 TB 2 Step Mantoux Skin Test completed tuberculin skin test; unspecified formulation Step 1 of Multi-step with next step required 98 CVX created date: 12/09/2022 consent date: 12/09/2022 administere d date: 09/22/2022 Pneumococcal Conjugate Vaccine (PCV13) completed pneumococcal conjugate vaccine, 13 valent 133 CVX created date: 09/21/2022 administere d date: 08/22/2021 SARS-COV-2 (COVID-19) completed SARS-COV-2 (COVID-19) vaccine, mRNA, spike protein, LNP, preservative free, 100 mcg/0.5mL dose or 50 mcg/0.25mL dose Mfg: Moderna Step 2 of Multi-step with next step required 207 CVX created date: 09/21/2022 administere d date: 04/19/2020 SARS-COV-2 (COVID-19) completed SARS-COV-2 (COVID-19) vaccine, mRNA, spike protein, LNP, preservative free, 100 mcg/0.5mL dose or 50 mcg/0.25mL dose Mfg: Moderna Step 1 of Multi-step with next step required 207 CVX created date: 09/21/2022 administere d date: 03/22/2020 Shingrix completed zoster vaccine recombinant 187 CVX created date: 09/21/2022 administere d date: 10/22/2021 Shingrix completed zoster vaccine recombinant 187 CVX created date: 09/21/2022 administere d date: 07/30/2021 SARS-COV-2 (COVID-19 BOOSTER) completed SARS-COV-2 (COVID-19) vaccine, mRNA, spike protein, LNP, preservative free, 30 mcg/0.3mL dose Mfg: Pfizer- Booster #3 208 CVX created date: 09/21/2022 administere d date: 08/22/2021 SARS-COV-2 (COVID-19 BOOSTER) completed SARS-COV-2 (COVID-19) vaccine, mRNA, spike protein, LNP, preservative free, 100 mcg/0.5mL dose or 50 mcg/0.25mL dose Mfg: Moderna Booster #2 207 CVX created date: 09/21/2022 administere d date: 08/04/2021 SARS-COV-2 (COVID-19 BOOSTER) completed SARS-COV-2 (COVID-19) vaccine, mRNA, spike protein, LNP, preservative free, 100 mcg/0.5mL dose or 50 mcg/0.25mL dose Mfg: Moderna Booster #1 207 CVX created date: 09/21/2022 administere d date: 02/19/2021 Mental Status Section Date Assessment Total Score Description 03/18/2023 CAM 0 No delirium ind icated 12/27/2022 BIMS 07 severe cognitiv e impairment CAM 0 No delirium ind icated PHQ-9 01 minimal depress ion Insurance Providers Plan of Treatment Section Interventions Intervention Code Code System Display Name Proposed D ate Problems Problem # Description Date of onset Resolved Date Code CodeSystem Concern Status 1 BIPOLAR DISORDER, UNSPECIFIED [address] active 2 ACUTE EMBOLISM AND THROMBOSIS OF UNSPECIFIED DEEP VEINS OF LEFT LOWER EXTREMITY [address] active 3 DEPRESSION, UNSPECIFIED [address] active 4 EPILEPSY, UNSPECIFIED, NOT INTRACTABLE, WITHOUT STATUS EPILEPTICUS [address] active 5 MENTAL DISORDER, NOT OTHERWISE SPECIFIED [address] active 6 NEED FOR ASSISTANCE WITH PERSONAL CARE [id number] active 7 OTHER EMPHYSEMA [address] active 8 PNEUMONIA, UNSPECIFIED ORGANISM 023 10/30/[address] completed 9 SYSTEMIC INFLAMMATORY RESPONSE SYNDROME (SIRS) OF NON-INFECTIOUS ORIGIN WITHOUT ACUTE ORGAN DYSFUNCTION 023 10/30/[id number] completed 10 UNSPECIFIED ASTHMA, UNCOMPLICATED [address] active 11 UNSPECIFIED FALL, SUBSEQUENT ENCOUNTER [address] active 12 ACUTE KIDNEY FAILURE, UNSPECIFIED [address] active 13 BENIGN PROSTATIC HYPERPLASIA WITH LOWER URINARY TRACT SYMPTOMS [address] active 14 DISORDER OF KIDNEY AND URETER, UNSPECIFIED [address] active 15 ESSENTIAL (PRIMARY) HYPERTENSION [address] active 16 HYPERLIPIDEMIA, UNSPECIFIED [address] active 17 HYPOTHYROIDISM, UNSPECIFIED [address] active 18 MUSCLE WEAKNESS (GENERALIZED) [address] active 19 RHABDOMYOLYSIS 023 09/25/[address] completed 20 SCHIZOAFFECTIVE DISORDER, UNSPECIFIED [address] active 21 UNSPECIFIED CONVULSIONS [address] active 22 UNSPECIFIED INTELLECTUAL DISABILITIES [address] active 23 UNSTEADINESS ON FEET [address] active 24 URINARY TRACT INFECTION, SITE NOT SPECIFIED 023 09/29/[address] completed [address] WEAK[address] active Reason for Referral No Reasons for Referral Entered Social History Social History Observation Description Start Date End Date Code Code System Current Smoking Status Tobacco smoking consumption unknown 730227270 SNOMED CT Sex Assigned At Male 1955 37470-1 [facility] Gender Identity Sexual Orientation Vital Signs Code Code System Vitals Name Values and Units Timing Information 9279-1 [facility] Respiratory Rate Value=18.0 Units=/m in 03/18/2023 8310-5 [facility] Body Temperature Value=98.1 Units= F 03/18/2023 8462-4 [facility] Blood Pressure-Diastolic Value=73 Un its=mmHg 03/18/2023 8480-6 [facility] Blood Pressure-Systolic Lxaat=266 Un its=mmHg 03/18/2023 27896-4 [facility] Pain Level Value=0.0 03/18/2023 8867-4 [facility] Heart rate Value=78.0 Units=/min 07/2023 91946-1 [facility] O2 % dC Oximetry Value=98.0 Units= % 03/06/2023 52843-1 [facility] Weight Ggwyz=635.4 Units=Lbs 03/2022 8302-2 [facility] Height Value=77.0 Units=Inches 10/01/2022
== END 2025-01-01 11:39 | disposition home or self-care (01) ==
LOC: HO.HSM 11:20
PROVIDERS: PCP Internal Medicine; Referring Provider Internal Medicine; Visit Provider Registered Nurse
DX: R25.1 Tremor, unspecified (principal); G93.49 Other encephalopathy
CPT/HCPCS: 99214

== ENCOUNTER → 2025-01-01 11:20 | Outpatient (BNVA) | payer MEDICARE, MEDICAID, SELFPAY | PROVIDERS: PCP Internal Medicine; Referring Provider Internal Medicine; Visit Provider Registered Nurse | DX: R25.1 Tremor, unspecified (principal); F79 Unspecified intellectual disabilities; G93.49 Other encephalopathy; Z79.01 Long term (current) use of anticoagulants | CPT/HCPCS: 99212 ==